=== PATIENT | female | born 2000 | race Caucasian/White ===

== ENCOUNTER 2022-09-28 01:49 | Emergency (ER) | payer SELFPAY ==
[2022-09-28 02:31] LABS: #Basophils 0.1 thou/uL (0.0-0.2); #Eosinphils 0.1 thou/uL (0.0-0.7); #Monocytes 0.7 thou/uL (0.11-0.59); #Neutrophils 9.2 thou/uL (1.40-6.50); %Basophils 0.6 % (0.0-1.0); %Eosinophils 0.8 % (0.0-10.0); %Lymphocytes 18.4 % (21.0-51.0); %Monocytes 5.6 % (0.0-10.0); Hematocrit 47.8 % (36.0-47.0); Hemoglobin 16.3 g/dL (12.0-16.0); Mean Corpuscular HGB CONC 34.1 g/dL (32.0-36.0); Mean Corpuscular Hemoglobin 30.4 pg (27.0-31.0); Mean Platelet Volume 9.4 fL (7.4-10.4); Platelet Count 324 10x3/uL (130-400); RBC Distribution Width 12.2 % (11.5-14.5); Red Blood Cell (RBC) Count 5.37 mill/uL (4.20-5.40); White Blood Cell (WBC) Count 12.5 10x3/uL (4.8-10.8)
[2022-09-28 02:55] LABS: ALT (SGPT) 25 U/L (8-55); AST (SGOT) 26 U/L (5-34); Albumin 4.7 g/dL (3.5-5.0); Alkaline Phosphatase 57 U/L (40-110); Anion Gap 15 mmol/L (10-20); BUN (Urea Nitrogen) 9 mg/dL (7.0-18.7); Bilirubin, Total 0.3 mg/dL (0.2-1.2); Calc. Creatinine Clearance 0 mL/min (70-130); Calcium 10.1 mg/dL (7.8-10.44); Carbon Dioxide 26 mmol/L (22-29); Chloride 102 mmol/L (98-107); Estimated GFR 109; Globulin 2.8 g/dL (2.4-3.5); Glucose 104 mg/dL (70-105); Potassium 4.3 mmol/L (3.5-5.1); Protein, Total 7.5 g/dL (6.0-8.3); Sodium 139 mmol/L (136-145)
[2022-09-28 02:57] LABS: Acetaminophen Less than 10 mcg/mL (10.0-30.0); Alcohol 68.2 mg/dL (Less than 10); Salicylate Less than 8.0 mg/dL (15.0-30.0)
[2022-09-28 03:10] LABS: BHCG - Serum Negative (NEGATIVE); Pregs Control Background? CLEAR/WHITE (CLR/WHITE); Pregs Control Bar Appear? YES (CONTROL BAR)
[2022-09-28 03:14] LABS: Amphetamine Detected (NotDetected); Barbiturates Screen Not Detected (NotDetected); Benzodiazepine Screen Not Detected (NotDetected); Cocaine Metabolite Screen Not Detected (NotDetected); Methadone Not Detected (NotDetected); Methamphetamine Not Detected (NotDetected); Opiate Screen Not Detected (NotDetected); Oxycodone Screen Not Detected (NotDetected); Phencyclidine (PCP) Not Detected (NotDetected); THC/Cannabinoid Screen Detected (NotDetected); Tricyclic Screen Not Detected (NotDetected)
== END 2022-09-28 04:56 | disposition home or self-care (01) ==
LOC: ERS 01:49
DX: S09.90XA Unspecified injury of head, initial encounter (principal); S80.211A Abrasion, right knee, initial encounter; S80.212A Abrasion, left knee, initial encounter; S90.511A Abrasion, right ankle, initial encounter; S60.512A Abrasion of left hand, initial encounter; S50.01XA Contusion of right elbow, initial encounter; F19.10 Other psychoactive substance abuse, uncomplicated; F17.290 Nicotine dependence, other tobacco product, uncomplicated; Y04.0XXA Assault by unarmed brawl or fight, initial encounter
CPT/HCPCS: 70450; 70486; 71045; 80053; 80306; 80307; 84703; 85025; 93005; 96360; 96361; G0390